=== PATIENT | male | born 1980 | race Caucasian/White ===

== ENCOUNTER → 2016-05-16 | Day surgery (SDC) | payer BC ==
[2016-05-08 14:47] VITALS: Ht 177.8 cm; Wt 81.8 kg
[~2016-05-16] VITALS: Ht 177.8 cm; Wt 81.8 kg
[~2016-05-16] MED LIST: ATROPINE SULFATE 0.1 MG/ML 5ML SYR IV PRN; DEXAMETHASONE SOD INJ 4 MG/ML VIAL IV PRN; DEXAMETHASONE SOD INJ 4 MG/ML VIAL ONE; EpHEDrine SULFATE INJ 50 MG/ML AMP IV PRN; FENTANYL CITRATE INJ 50 MCG/1 ML 2 ML VIAL IV PRN; FENTANYL CITRATE INJ 50 MCG/1 ML 2 ML VIAL ONE; KETOROLAC TROMETHAMINE 30 MG/ML VIAL IV. PRN; KETOROLAC TROMETHAMINE 30 MG/ML VIAL ONE; LABETALOL HCL IV 5 MG/ML 20ML IV PRN; LACTATED RINGER'S 1000ML 1,000 ML IV SCH; LIDOCAINE 2% 20 MG/ML 5ML SYR ONE; METOCLOPRAMIDE HCL INJ 5 MG/ML 2 ML VIAL IV PRN; MIDAZOLAM HCL 1 MG/ML 2ML VIAL ONE; MoRPHine SULFATE 10 MG/ML CARP/VIAL IV PRN; ONDANSETRON INJ 2 MG/ML 2 ML VIAL IV PRN; ONDANSETRON INJ 2 MG/ML 2 ML VIAL ONE; OXYC1TAB3 PO; PHENYLEPHRINE 100MCG/ML 5ML SYR IV PRN; PROP40TA5 PO; PROPOFOL IV EMULSION 10 MG/ML 20 ML VIAL IV ONE; TAMS0.4C38 PO
--- NOTE | 2016-05-16 06:54 | [facility] History and Physical ---
History General Date of Service: May 16, 2016. Chief Complaint: right kidney stone Primary Care Physician: Pedro Fitch D.O. Pt seen a urologist before?: Yes If yes, why?: r kidney stone History of Present Illness Today patient presents for treatment of right kidney stone. He has had others he passed on his own. He has a 7mm largest right renal stone. Imaging Imaging: [facility] Laboratory Labs were reviewed and are within normal limits unless listed below. Labs are available in the chart and at [facility] Problem List Medical Problems: (1) Right ureteral calculus Status: Acute Past History Past Medical History: migraines Past Surgical History: no surgical history Family History no pertinent family hx Social History Hx Tobacco Use In Past Year?: No (QUIT 1 YEAR AGO) Smoking Status: Former Smoker Alcohol: never Marital status: Occupation status: unemployed Allergies Coded Allergies: No Known Allergies (Unverified , 05/16/16) Medications Home Medications: Home Meds and Scripts Medications Dose Route/Sig Max Daily Dose Days Date Category Propranolol Hcl 40 Mg Tab 1 Tab PO BID 02/07/16 Reported Inpatient Medications: Current Inpatient Medications Medications (Trade) Dose Ordered Sig/Aren Route Start Time Stop Time Status Last Admin Dose Admin Lactated Ringer's (Lr 1000ml) 1,000 ml @ 15 mls/hr Q24H IV 05/16/16 06:45 05/17/16 06:44 Review of Systems Review of Systems Constitutional: No fever Gastrointestinal: + abdominal pain Cardiovascular: No chest pain Respiratory: No shortness of breath Physical Exam Physical Exam: General Appearance: WD/WN, no apparent distress, + thin Eyes: bilateral eyes normal inspection ENT: hearing grossly normal Respiratory/Chest: lungs clear, normal breath sounds, no respiratory distress, no accessory muscle use Cardiovascular: regular rate, rhythm, no JVD, no murmur Extremities: non-tender, normal inspection, no pedal edema, no calf tenderness Neurologic/Psychiatric: alert, normal mood/affect, oriented x 3 Skin: normal color, warm/dry, no rash Assessment & Plan Assessment & Plan Assessment & Plan: right kidney stones plan right shock wave lithotripsy He understands risks of bleeding failure pain kidney bruise.
--- NOTE | 2016-05-16 08:15 | [facility] Operative Report ---
Operative Report Operative Date May 16, 2016. Pre-Operative Diagnosis Right Renal Calculi Post-Operative Diagnosis same Procedure(s) Performed right shock wave lithotripsy Surgeon Dr. Martinez [employer] Mechanical Surgeon(s) None Estimated Blood Loss 0 mL Findings radio-opaque right kidney 7mm renal stone Specimens None Drains none Anesthesia LMA Complication(s) None Disposition Recovery Room / PACU Indications large right renal stone plan treatment as size makes it unlikely to pass Description of Procedure Patient was placed supine on OR table. Fluoro confirmed stone was readily visible. He had general LMA anesthesia and was placed right flank against the lithotriptor head. Time out held with team. We performed right ESWL up to 2500 shocks aimed at the right renal stone. It lightened marginally during case. We observed a 2 minute pause after the first 200 shocks and then gradually increased the power from 2 to 4. At end of case he has very mild petechia at the right flank energy treatment site. He extubated uneventfully and transferred in stable condition to recovery room. Plan: home today oral pain meds as needed. strain urine until a few fragments are recovered. rtc 1 month with [facility] clean case no antibiotic deputy controller asa 2 I attest to the content of the Intraoperative Record and any orders documented therein. Any exceptions are noted below.
--- NOTE | 2016-05-16 08:19 | Discharge Instructions ---
Discharge Instructions Date of Service May 16, 2016. Admission Reason for Admission: Right Kidney Stone Discharge Discharge Diagnosis / Problem: right kidney stones Discharge Goals Goal(s): Decrease discomfort, Improve disease control Activity Recommendations Activity Limitations: resume your previous activity Lifting Limitations: none Exercise/Sports Limitations: gradually increase as tolerated May Resume Sexual Activity: when tolerated Shower/Bathe: no limitations Driving or Machine Use: resume 1 day after discharge . Instructions / Follow-Up Instructions / Follow-Up expect blood in urine for days to weeks expect moderate pain right flank for several days go to ER for uncontrolled pain, continuous vomiting, or fever over 100F Use tylenol or ibuprofen every 6 hours for mild pain use oxycodone every 6 hours for moderate pain Discharge Diet Recommended Diet: Regular Diet Fluid Restriction: None Procedures Procedures Performed: Right Extracorporeal Shock Wave Lithotripsy Pending Studies Studies pending at discharge: no Medical Emergencies . Who to Call and When: Medical Emergencies: If at any time you feel your situation is an emergency, please call 911 immediately. . Non-Emergent Contact Non-Emergency issues call your: Urologist ([phone]) Call Non-Emergent contact if: temperature is above 100.5, your pain is not controlled . . "Provider Documentation" section prepared by Asha Martinez. VTE Core Measure Inpt VTE Proph given/why not?: SCD's
[2016-05-16 08:44] VITALS: TEMP 36.1
[2016-05-16 09:20] VITALS: BP 112/76; PULSE 62; O2SAT 100
--- NOTE | 2016-05-16 09:42 | Anesthesia Progress Nt - [facility] ---
Anesthesia Post Op Note Date & Time May 16, 2016 at 09:18 Vital Signs Pain Intensity: 0 Vital Signs Past 12 Hours Date Time Temp Pulse Resp B/P Pulse Ox O2 Delivery O2 Flow Rate FiO2 05/16/16 08:44 36.1 60 18 118/80 100 Room Air 05/16/16 08:31 112/79 05/16/16 08:30 36.4 62 12 112/79 98 Room Air 05/16/16 08:28 60 13 05/16/16 08:28 60 13 98 05/16/16 08:26 115/80 05/16/16 08:23 64 15 05/16/16 08:23 60 15 100 05/16/16 08:21 107/73 05/16/16 08:18 59 11 05/16/16 08:18 58 11 99 05/16/16 08:16 118/80 05/16/16 08:13 54 12 99 05/16/16 08:13 57 12 05/16/16 08:11 117/78 05/16/16 08:08 36.4 78 12 115/81 99 Room Air 05/16/16 08:08 75 05/16/16 08:08 75 115/81 99 05/16/16 06:40 36.5 70 16 117/76 97 Room Air Notes Mental Status: alert / awake / arousable, participated in evaluation Pt Amnestic to Procedure: Yes Nausea / Vomiting: adequately controlled Pain: adequately controlled Airway Patency, RR, SpO2: stable & adequate BP & HR: stable & adequate Hydration State: stable & adequate Anesthetic Complications: no major complications apparent
== END | disposition home or self-care (01) ==
LOC: X.SURG 06:20
PROVIDERS: ATTEND Urology
DX: N20.0 Calculus of kidney (principal); N20.1 Calculus of ureter; G43.909 Migraine, unspecified, not intractable, without status migrainosus

== ENCOUNTER 2017-09-30 17:48 | Inpatient (IN) | payer BC ==
[~2017-09-30] VITALS: Ht 177.8 cm; Wt 84.5 kg
[~2017-09-30 17:48] MED LIST changes: -ATROPINE SULFATE 0.1 MG/ML 5ML SYR IV PRN; -DEXAMETHASONE SOD INJ 4 MG/ML VIAL IV PRN; -DEXAMETHASONE SOD INJ 4 MG/ML VIAL ONE; -EpHEDrine SULFATE INJ 50 MG/ML AMP IV PRN; -FENTANYL CITRATE INJ 50 MCG/1 ML 2 ML VIAL IV PRN; -FENTANYL CITRATE INJ 50 MCG/1 ML 2 ML VIAL ONE; -KETOROLAC TROMETHAMINE 30 MG/ML VIAL IV. PRN; -KETOROLAC TROMETHAMINE 30 MG/ML VIAL ONE; -LABETALOL HCL IV 5 MG/ML 20ML IV PRN; -LACTATED RINGER'S 1000ML 1,000 ML IV SCH; -LIDOCAINE 2% 20 MG/ML 5ML SYR ONE; -METOCLOPRAMIDE HCL INJ 5 MG/ML 2 ML VIAL IV PRN; -MIDAZOLAM HCL 1 MG/ML 2ML VIAL ONE; -MoRPHine SULFATE 10 MG/ML CARP/VIAL IV PRN; -ONDANSETRON INJ 2 MG/ML 2 ML VIAL IV PRN; -ONDANSETRON INJ 2 MG/ML 2 ML VIAL ONE; -OXYC1TAB3 PO; -PHENYLEPHRINE 100MCG/ML 5ML SYR IV PRN; -PROPOFOL IV EMULSION 10 MG/ML 20 ML VIAL IV ONE; -TAMS0.4C38 PO
[2017-09-30] MEDS ORDERED: SODIUM CHLORIDE 0.9% 1000ML 500 ML IV ONE ×2 (18:04)
[2017-09-30] MEDS ORDERED: ACETAMINOPHEN 500 MG TAB PO STA (18:04)
[2017-09-30] MEDS ORDERED: OPTIRAY 320 IV PRN (18:15)
[2017-09-30] MEDS ORDERED: ELET40TA9 PO (18:20)
[2017-09-30] MEDS ORDERED: ACET-1256 PO (18:22)
--- NOTE | 2017-09-30 18:26 | EMERGENCY ROOM VISIT NOTE ---
History Report prepared by Laurel: Vonnie Marsh Under the Supervision of: Dr. Luis F Terry M.D. First contact with patient: 18:00 Chief Complaint: ILLNESS Stated Complaint: COLD, SORE THROAT, SHAKING History of Present Illness The patient is a 37 year old male who presents to the Emergency Room with complaints of a constant sore throat beginning yesterday. He notes the pain is worst on the R side of his throat, and is accompanied by shaking and some mild ear pain. The patient denies a runny nose, cough, difficulty breathing, nausea, vomiting, or bowel movement or urinary symptoms. He reports he has been taking Tylenol for his symptoms, and last had it 6 hours ago. The patient notes he is having some difficulty swallowing. Decreased PO intake. No trauma. No thyroid history. Source of History: patient Onset: yesterday Position: throat Quality: other (sore throat) Timing: constant Associated Symptoms: No cough, No nausea, No urinary symptoms Note: Associated symptoms: mild ear pain, difficulty swallowing. Denies: runny nose, difficulty breathing, bowel movement symptoms. Review of Systems See HPI for pertinent positives and negatives. A total of ten systems were reviewed and were otherwise negative. Past Medical & Surgical Medical Problems: (1) Migraine Unspecified W/O Intract Mgrn W/O Status Migrainosus (2) Renal colic on right side (3) Sepsis Family History Diabetes mellitus FH: cancer FH: heart disease Hypertension Kidney disease Social History Smoking Status: Never Smoker Alcohol Use: none Marital Status: Housing Status: lives with family Occupation Status: unemployed Current/Historical Medications Scheduled PRN Acetaminophen (Tylenol), 500 MG PO UD PRN for Pain or Fever Eletriptan Hydrobromide (Eletriptan Hydrobromide), 40 MG PO UD PRN for Migraine Allergies Coded Allergies: No Known Allergies (Unverified , 05/16/16) Physical Exam Vital Signs Date Time Temp Pulse Resp B/P (MAP) Pulse Ox O2 Delivery O2 Flow Rate FiO2 09/30/17 21:36 37.7 101 18 141/79 96 Room Air 09/30/17 20:24 115 20 121/74 96 Room Air 09/30/17 20:24 39.0 09/30/17 19:27 39.7 09/30/17 19:13 132 26 117/77 96 Room Air 09/30/17 18:58 136 24 96 Room Air 09/30/17 18:24 Room Air 09/30/17 17:55 39.4 154 20 138/79 96 Room Air Physical Exam GENERAL: Awake, alert, well-appearing, appears moderately uncomfortable HENT: Normocephalic, atraumatic. R tonsillar swelling and exudate. EYES: Normal conjunctiva. Sclera non-icteric. NECK: Supple with slight right tenderness at angle of right jaw. No nuchal rigidity. RESPIRATORY: Clear to auscultation. No wheezes. Normal respiratory effort. CARDIAC: Tachycardic rate. Normal rhythm. Extremities warm and well perfused. GI: Soft, non-distended. No tenderness to palpation. No rebound or guarding. No masses. RECTAL: Deferred. MUSCULOSKELETAL: Atraumatic. Chest examination reveals no tenderness. There is no CVA tenderness to palpation. LOWER EXTREMITIES: Calves are equal size bilaterally and non-tender. No edema NEURO: Normal sensorium. No sensory or motor deficits noted. No facial droop. SKIN: Warm and dry. No rash or jaundice noted. Medical Decision & Procedures ER Provider Diagnostic Interpretation: Radiology results as stated below per my review and radiologist interpretation: CT SOFT TISSUE NECK WITH CT DOSE: 432.67 mGy.cm CLINICAL HISTORY: Sore throat and fever. Possible right-sided peritonsillar abscess. TECHNIQUE: Helical images were acquired during intravenous administration of 115 cc of Optiray 320. A dose lowering technique was utilized adhering to the principles of ALARA. COMPARISON STUDY: None. FINDINGS: The visualized portions of the lung apices are unremarkable. No thyroid masses are visualized. No salivary gland masses are visualized. There are enlarged right-sided level 2 lymph nodes, likely reactive. There is a subtle 11 mm right tonsillar hypodensity, consistent with a developing phlegmon/abscess. There is no evidence of airway compromise. The epiglottis appears normal. IMPRESSION: 1. Subtle 11 mm right tonsillar hypodensity consistent with a developing phlegmon/abscess 2. No evidence of significant airway compromise 3. Mildly enlarged right cervical lymph nodes, likely reactive. 4. Normal epiglottis Electronically signed by: José Miguel Gonzalez M.D. 09/30/2017 8:47 PM Dictated Date/Time: 09/30/2017 8:43 PM CHEST ONE VIEW PORTABLE CLINICAL HISTORY: Fever, sepsis COMPARISON STUDY: No previous studies for comparison. FINDINGS: The cardiac and mediastinal contours are normal. There is no evidence of focal pulmonary consolidation. There is no evidence of failure. No pleural effusions are visualized. IMPRESSION: No active disease in the chest. Electronically signed by: José Miguel Gonzalez M.D. 09/30/2017 6:47 PM Dictated Date/Time: 09/30/2017 6:46 PM Laboratory Results 09/30/17 18:10 Red Blood Count 5.68, Mean Corpuscular Volume 80.6, Mean Corpuscular Hemoglobin 27.6, Mean Corpuscular Hemoglobin Concent 34.3, Mean Platelet Volume 10.1, Neutrophils (%) (Auto) 84.3, Lymphocytes (%) (Auto) 8.6, Monocytes (%) (Auto) 6.5, Eosinophils (%) (Auto) 0.1, Basophils (%) (Auto) 0.1, Neutrophils # (Auto) 14.59, Lymphocytes # (Auto) 1.48, Monocytes # (Auto) 1.13, Eosinophils # (Auto) 0.01, Basophils # (Auto) 0.02 09/30/17 18:10 Test 09/30/17 18:10 09/30/17 21:45 White Blood Count 17.30 K/uL (4.8-10.8) Red Blood Count 5.68 M/uL (4.7-6.1) Hemoglobin 15.7 g/dL (14.0-18.0) Hematocrit 45.8 % (42-52) Mean Corpuscular Volume 80.6 fL (80-100) Mean Corpuscular Hemoglobin 27.6 pg (25-34) Mean Corpuscular Hemoglobin Concent 34.3 g/dl (32-36) Platelet Count 97 K/uL (130-400) Mean Platelet Volume 10.1 fL (7.4-10.4) Neutrophils (%) (Auto) 84.3 % Lymphocytes (%) (Auto) 8.6 % Monocytes (%) (Auto) 6.5 % Eosinophils (%) (Auto) 0.1 % Basophils (%) (Auto) 0.1 % Neutrophils # (Auto) 14.59 K/uL (1.4-6.5) Lymphocytes # (Auto) 1.48 K/uL (1.2-3.4) Monocytes # (Auto) 1.13 K/uL (0.11-0.59) Eosinophils # (Auto) 0.01 K/uL (0-0.5) Basophils # (Auto) 0.02 K/uL (0-0.2) RDW Standard Deviation 39.7 fL (36.4-46.3) RDW Coefficient of Variation 13.5 % (11.5-14.5) Immature Granulocyte % (Auto) 0.4 % Immature Granulocyte # (Auto) 0.07 K/uL (0.00-0.02) Platelet Estimate DECREASED Red Blood Cell Morphology Unremarkable Anion Gap 7.0 mmol/L (3-11) Est Creatinine Clear Calc Drug Dose 81.1 ml/min Estimated GFR () 81.4 Estimated GFR (Non- 70.2 BUN/Creatinine Ratio 11.9 (10-20) Calcium Level 8.8 mg/dl (8.5-10.1) Magnesium Level 2.1 mg/dl (1.8-2.4) Total Bilirubin 0.7 mg/dl (0.2-1) Direct Bilirubin 0.2 mg/dl (0-0.2) Aspartate Amino Transf (AST/SGOT) 17 U/L (15-37) Alanine Aminotransferase (ALT/SGPT) 27 U/L (12-78) Alkaline Phosphatase 88 U/L (45-117) C-Reactive Protein 16.80 mg/dl (0-0.29) Total Protein 8.0 gm/dl (6.4-8.2) Albumin 4.2 gm/dl (3.4-5.0) Thyroid Stimulating Hormone (TSH) 0.340 uIu/ml (0.300-4.500) Monoscreen NEG (NEG) Lactic Acid Level 0.7 mmol/L (0.4-2.0) Laboratory results reviewed by me Medications Administered Medications (Trade) Dose Ordered Sig/Aren Route Start Time Stop Time Status Last Admin Dose Admin Acetaminophen (Tylenol Tab) 1,000 mg NOW STAT PO 09/30/17 18:04 09/30/17 18:08 DC 09/30/17 18:23 1,000 MG Sodium Chloride 500 ml @ 999 mls/hr Q31M ONCE IV 09/30/17 18:04 09/30/17 18:34 DC 09/30/17 18:04 999 MLS/HR Sodium Chloride 500 ml @ 999 mls/hr Q31M ONCE IV 09/30/17 18:04 09/30/17 18:34 DC 09/30/17 18:04 999 MLS/HR Ampicillin Sodium/ Sulbactam Sodium 3000 mg/Sodium Chloride 108 ml @ 200 mls/hr NOW STAT IV 09/30/17 18:45 09/30/17 19:17 DC 09/30/17 19:14 200 MLS/HR Ketorolac Tromethamine (Toradol Inj) 15 mg NOW STAT IV 09/30/17 19:33 09/30/17 19:34 DC 09/30/17 19:40 15 MG Dexamethasone Sodium Phosphate (Dexamethasone Inj Pf) 10 mg NOW ONCE PO 09/30/17 21:30 09/30/17 21:32 DC 09/30/17 21:36 10 MG Sodium Chloride 1,000 ml @ 999 mls/hr Q1H1M ONCE IV 09/30/17 21:32 09/30/17 22:32 DC 09/30/17 21:36 999 MLS/HR ECG Per My Interpretation Indication: tachycardia Rate (beats per minute): 144 Findings: other (normal axis. normal intercals. no ST el) ED Course 1800: The patient was evaluated in room C1B. A complete history and physical exam was performed. 1804: Ordered Sodium Chloride 500 ml @ 999 mls/hr IV, Sodium Chloride 500 ml @ 999 mls/hr IV, Tylenol Tab 1000 mg PO 1815: Ordered Ioversol 100 ml IV 1827: Throat swabs obtained. 5: Ordered Ampicillin Sodium/Sulbactam Sodium 3000 mg/Sodium Chloride 108 ml @ 200 mls/hr IV 1927: I reevaluated and updated the patient. 1932: Ordered Toradol Inj 15 mg IV. 2115: I reevaluated and updated the patient. 2129: Ordered Dexamethasone Sodium Phosphate 10 mg PO. 2131: Ordered Sodium Chloride 1000 ml @ 999 mls/hr IV. 2135: I discussed the case with Dr. Callaway, [facility] hospitalist. The patient will be evaluated for further treatment and disposition. Medical Decision Etiologies such as viral syndrome, tonsillitis, streptococcal pharyngitis, mononucleosis, peritonsillar abscess, retropharyngeal abscess, otitis, pneumonia , influenza, as well as others were entertained. Patient presents with neck pain and fever starting yesterday. Evidence of right tonsillar swelling. No nausea vomiting or shortness of breath. Does not appear grossly meningitic. Tachycardic. Lactate borderline elevation. Believe he likely has pharyngitis versus neck infection versus BILLET CUTTER. Doubt meningitis. Chest x-ray clear. Benign abdomen. Fluid rehydrated. Culture sent. Rapid strep and mono sent. [place] negative. Leukocytosis is present. Given Tylenol and Toradol for fever. Patient's fever improved slightly and tachycardia improved slightly and he is more comfortable but still febrile and tachycardic with leukocytosis. Has signs of sepsis but not organ dysfunction. Second lactate improved. Not in septic shock. Given steroids and again received Unasyn. Will monitor overnight as he developing right peritonsillar phlegmon/early abscess. This is not amenable to draining at this time. No signs of airway compromise. Will admit overnight and the hospitalist was contacted. Medication Reconcilliation Current Medication List: was personally reviewed by me Blood Pressure Screening Patient's blood pressure: Normal blood pressure Blood pressure disposition: Did not require urgent referral Consults Time Called: 2130 Consulting Physician: Saul Wade hospitalist Returned Call: 2135 [facility] The patient will be evaluated for further treatment and disposition. Impression Primary Impression: Peritonsillar abscess Additional Impression: Sepsis Critical Care I have personally spent greater than 31 minutes of critical care time in the direct management of this patient. This includes bedside care, interpretation of diagnostic studies, and testing, discussion with consultants, patient, and family members, and other required patient management activities. This 31 minutes is in excess of all separately billable procedures. Scribe Attestation The scribe's documentation has been prepared under my direction and personally reviewed by me in its entirety. I confirm that the note above accurately reflects all work, treatment, procedures, and medical decision making performed by me. Departure Information Dispostion Being Evaluated By Hospitalist Referrals Pedro Fitch D.OMoises (PCP) Patient Instructions My [facility] Sepsis Post Crystalloid Evaluation Date: Sep 30, 2017 Time: 21:16 Capillary Refill Exam Normal (less than 2 seconds) Cardiopulmonary Evaluation Lung Exam: chest non-tender, lungs clear, normal breath sounds, no respiratory distress, no accessory muscle use Heart Exam: no edema, no gallop, no JVD, no murmur, normal peripheral pulses, + tachycardia Central Venous Evaluation Pulse Ox %: 96 Peripheral Pulse Evaluation Bounding Skin Exam [place] Vitals Last Vital Signs Documentation Date Time Temp Pulse Resp B/P (MAP) Pulse Ox O2 Delivery O2 Flow Rate FiO2 09/30/17 21:36 37.7 101 18 141/79 96 Room Air Problem Qualifiers Additional Impression: Sepsis Sepsis type: sepsis due to unspecified organism Qualified Codes: A41.9 - Sepsis, unspecified organism
[2017-09-30] MEDS ORDERED: AMPICILLIN/SULBACTAM SOD INJ 3,000 MG in SODIUM CHLORIDE 0.9% 100ML 100 ML IV STA (18:45)
--- NOTE | 2017-09-30 18:48 | DIAGNOSTIC IMAGING REPORT ---
CHEST ONE VIEW PORTABLE CLINICAL HISTORY: Fever, sepsis COMPARISON STUDY: No previous studies for comparison. FINDINGS: The cardiac and mediastinal contours are normal. There is no evidence of focal pulmonary consolidation. There is no evidence of failure. No pleural effusions are visualized.[ IMPRESSION: No active disease in the chest. Electronically signed by: José Miguel Gonzalez M.D. 09/30/2017 6:47 PM Dictated Date/Time: 09/30/2017 6:46 PM
[2017-09-30 18:49] LABS: ALBUMIN 4.2 gm/dl (3.4-5.0); CALCIUM 8.8 mg/dl (8.5-10.1); CREATININE 1.3 mg/dl (0.60-1.40); POTASSIUM 3.9 mmol/L (3.5-5.1)
[2017-09-30] MEDS ORDERED: KETOROLAC TROMETHAMINE 30 MG/ML VIAL IV STA (19:33)
[2017-09-30 19:59] LABS: HEMATOCRIT 45.8 % (42-52); HEMOGLOBIN 15.7 g/dL (14.0-18.0); MEAN CELL VOLUME 80.6 fL (80-100); MEAN CORPUSCULAR HEMOGLOBIN 27.6 pg (25-34); MEAN CORPUSCULAR HGB CONC 34.3 g/dl (32-36); MEAN PLATELET VOLUME 10.1 fL (7.4-10.4); PLATELET COUNT 97 K/uL (130-400); RED CELL DISTRIBUTION WIDTH CV 13.5 % (11.5-14.5); RED CELL DISTRIBUTION WIDTH SD 39.7 fL (36.4-46.3)
[2017-09-30 20:00] LABS: BASO % 0.1 %; BASO ABS # 0.02 K/uL (0-0.2); EOS % 0.1 %; EOS ABS # 0.01 K/uL (0-0.5); IG# 0.07 K/uL (0.00-0.02); LYMPH % 8.6 %; LYMPH ABS # 1.48 K/uL (1.2-3.4); MONO % 6.5 %; MONO ABS # 1.13 K/uL (0.11-0.59); NEUT % 84.3 %; NEUT ABS # 14.59 K/uL (1.4-6.5)
--- NOTE | 2017-09-30 20:49 | DIAGNOSTIC IMAGING REPORT ---
CT SOFT TISSUE NECK WITH CT DOSE: 432.67 mGy.cm CLINICAL HISTORY: Sore throat and fever. Possible right-sided peritonsillar abscess. TECHNIQUE: Helical images were acquired during intravenous administration of 115 cc of Optiray 320. A dose lowering technique was utilized adhering to the principles of ALARA. COMPARISON STUDY: None. FINDINGS: The visualized portions of the lung apices are unremarkable. No thyroid masses are visualized. No salivary gland masses are visualized. There are enlarged right-sided level 2 lymph nodes, likely reactive. There is a subtle 11 mm right tonsillar hypodensity, consistent with a developing phlegmon/abscess. There is no evidence of airway compromise. The epiglottis appears normal. IMPRESSION: 1. Subtle 11 mm right tonsillar hypodensity consistent with a developing phlegmon/abscess 2. No evidence of significant airway compromise 3. Mildly enlarged right cervical lymph nodes, likely reactive. 4. Normal epiglottis Electronically signed by: José Miguel Gonzalez M.D. 09/30/2017 8:47 PM Dictated Date/Time: 09/30/2017 8:43 PM
[2017-09-30] MEDS ORDERED: DEXAMETHASONE **PF** INJ 10 MG/ML VIAL PO ONE (21:30)
[2017-09-30] MEDS ORDERED: SODIUM CHLORIDE 0.9% 1000ML 1,000 ML IV ONE (21:32)
--- NOTE | 2017-09-30 21:50 | Progress Note ---
Progress Note Post Crystalloid Evaluation Date: Sep 30, 2017 Time: 22:00 Subjective Sore throat, odynophagia symptoms of 1 day duration Physical Exam Vital Signs: Vital Signs Date Time Temp Pulse Resp B/P (MAP) Pulse Ox O2 Delivery O2 Flow Rate FiO2 09/30/17 21:36 37.7 101 18 141/79 96 Room Air Heart: + tachycardia Peripheral Pulse: Normal Capillary Refill: Normal (less than 2 seconds) Skin: [place] Assessment & Plan Presence of: Severe Sepsis Severe sepsis SIRS plus lactic acid elevation secondary to peritonsillar abscess. CS, IV Unasyn. IVF, follow lactic acid
[2017-09-30] MEDS ORDERED: ACETAMINOPHEN 325 MG TAB PO PRN (22:30)
[2017-09-30] MEDS ORDERED: IBUPROFEN 200 MG TAB PO PRN (22:30)
[2017-09-30] MEDS ORDERED: TRAMADOL HCL 50 MG TAB PO PRN (22:30)
[2017-09-30] MEDS ORDERED: PROCHLORPERAZINE INJ 5 MG in SYRINGE 4 ML IV PRN (22:30)
[2017-09-30 22:36] VITALS: BP 131/87; PULSE 101; TEMP 36.9; O2SAT 97; Ht 177.8 cm; Wt 84.5 kg
[2017-09-30] MEDS ORDERED: AMPICILLIN/SULBACTAM CONSULT ACTIVE PRN (23:00)
[2017-09-30] MEDS ORDERED: NSS + 20MEQ KCL 1000ML 1,000 ML IV ONE (23:15)
--- NOTE | 2017-10-01 00:04 | HISTORY & PHYSICAL EXAMINATION ---
DATE OF ADMISSION: 09/30/2017 PRIMARY CARE PHYSICIAN: Dr. Fitch. CHIEF COMPLAINT: Sore throat. HISTORY OF PRESENT ILLNESS: Medical history is significant for chronic migraine, urolithiasis, chronic thrombocytopenia. Since childhood, the patient has had recurrent sore throats (about three episodes a year) - most episodes resolving without antibiotic prescription. Last episode was last month. Yesterday sore throat noted more on on the right side with R otalgia, odynophagia, fever, chills. No chest pain, no shortness of breath. At the Emergency Room, patient received Unasyn for sepsis. MEDICAL HISTORY: As above. SURGERIES: Urologic procedures. HOME MEDICATIONS: Include Nortriptyline, Omeprazole, Relpax p.r.n. ALLERGIES: DUST MITE. FAMILY HISTORY: There is a family history of recurrent sore throat. PERSONAL AND SOCIAL HISTORY: Nonsmoker, no chronic intake of alcoholic beverages. [employer] school employee. Originally from [place]. REVIEW OF SYSTEMS: As per HPI, all 10 systems reviewed, all other ROS negative. PHYSICAL EXAMINATION: VITAL SIGNS: Blood pressure was noted to be 113/79, pulse rate 154, later 101, RR 18, temperature 39.7, sats 96 on room air. GENERAL: Noted to be pleasant and comfortable, no respiratory distress. No stridor. SKIN: Normal color, warm. HEENT: Shorter palpebral conjunctivae. No ptosis, dry mucosa. Enlarged tonsil on the right with right peritonsillar swelling, R tonsillar exudate noted. No trismus. NECK: Supple, some submandibular adenopathy noted. CHEST: Clear to auscultation, no tenderness. HEART: Tachycardic. No murmur. ABDOMEN: Soft, nontender. EXTREMITIES: No edema. No gross deformities, no tenderness. NEUROLOGIC: Coherent, no gross focality. LABORATORY DATA: Hemoglobin 15.7, hematocrit 45.8, white cell count 17.3, platelets 97 (immature granulocytes 0.07, monocytes 1.13, decreased platelet estimate). Sodium 136, potassium 3.9, chloride 103, BUN 60, creatine 1.2, glucose 114. Lactic acid was noted to be 2.1. CT neck shows subtle 11-mm right tonsillar hypodensity consistent with developing phlegmon/abscess. Chest x-ray, no active disease. EKG as per my interpretation, rate 145, sinus tachycardia, no ischemia. ASSESSMENT: 1. Severe sepsis SIRS plus lactic acid elevation secondary to peritonsillar abscess. 2. Chronic migraine, stable 3. Hyperglycemia, rule out DM. 4. Chronic thrombocytopenia with abnormal WBC differential count rule out blood dyscrasia. PLAN: GMF CS, IV Unasyn. IVF, follow lactic acid ENT consult, peritonsillar abscess, recurrent tonsillitis. Peripheral blood smear. Check hemoglobin A1c. DVT prophylaxis, SCDs RE thrombocytopenia. Full code. MTDD
[2017-10-01] MEDS: AMPICILLIN/SULBACTAM SOD INJ 3,000 MG in SODIUM CHLORIDE 0.9% 100ML 100 ML IV SCH ×4 (01:41→20:10)
[2017-10-01] MEDS: KETOROLAC TROMETHAMINE 15 MG/ML VIAL IV. PRN (05:46)
[2017-10-01 05:55] LABS: HEMATOCRIT 40.8 % (42-52); HEMOGLOBIN 13.9 g/dL (14.0-18.0); MEAN CORPUSCULAR HEMOGLOBIN 27.6 pg (25-34); MEAN CORPUSCULAR HGB CONC 34.1 g/dl (32-36); RED CELL DISTRIBUTION WIDTH CV 13.8 % (11.5-14.5); RED CELL DISTRIBUTION WIDTH SD 40.6 fL (36.4-46.3); WHITE BLOOD COUNT 17.05 K/uL (4.8-10.8)
[2017-10-01 05:58] LABS: MEAN PLATELET VOLUME 9.6 fL (7.4-10.4); PLATELET COUNT 78 K/uL (130-400)
[2017-10-01 06:15] LABS: CREATININE 0.89 mg/dl (0.60-1.40)
[2017-10-01 06:17] LABS: BASO % 0.1 %; BASO ABS # 0.01 K/uL (0-0.2); IG# 0.07 K/uL (0.00-0.02); LYMPH % 4.6 %; LYMPH ABS # 0.78 K/uL (1.2-3.4); MONO % 3.5 %; NEUT % 91.4 %; NEUT ABS # 15.59 K/uL (1.4-6.5)
[2017-10-01 07:16] VITALS: BP 120/74; PULSE 91; TEMP 36.6; O2SAT 97
--- NOTE | 2017-10-01 14:58 | Progress Note ---
Subjective Date of Service: Oct 01, 2017. Subjective Pt evaluation today including: conversation w/ patient, physical exam, lab review, review of studies, conversation w/ service loss control consultant, review of inpatient medication list Saw/examined the patient in room 454 He's doing well, no problems/issues at this time throat pain improving; states he's had throat pain once or twice every year and is wondering about getting his tonsils removed fevers improved, tolerated clears Problem List Medical Problems: (1) Peritonsillar abscess Status: Acute (2) Right ureteral calculus Status: Acute Review of Systems Constitutional: No fever (resolved), No chills ENT: + sore throat (improving), + trouble swallowing Respiratory: No cough, No sputum, No wheezing, No shortness of breath, No dyspnea on exertion, No dyspnea at rest, No hemoptysis Cardiac: No chest pain, No edema, No palpitations Abdomen: No pain, No nausea, No vomiting, No diarrhea, No constipation, No GI bleeding Medications Current Inpatient Medications Medications (Trade) Dose Ordered Sig/Aren Route Start Time Stop Time Status Last Admin Dose Admin Ioversol (Optiray 320) 100 ml UD PRN IV 09/30/17 18:15 10/04/17 18:14 Acetaminophen (Tylenol Tab) 650 mg Q4H PRN PO 09/30/17 22:30 10/30/17 22:29 Ampicillin Sodium/ Sulbactam Sodium (Consult) 1 ea UD PRN N/A 09/30/17 23:00 10/30/17 22:59 Ketorolac Tromethamine (Toradol Inj) 15 mg Q6H PRN IV. 09/30/17 22:30 10/05/17 22:29 10/01/17 05:46 15 MG Ibuprofen (Advil Tab) 400 mg Q6H PRN PO 09/30/17 22:30 10/30/17 22:29 Prochlorperazine Edisylate 5 mg/ Syringe 5 ml @ 5 mls/min Q6H PRN IV 09/30/17 22:30 10/30/17 22:29 Tramadol HCl (Ultram Tab) not relieved by tylenol @ Q6H PRN PO 09/30/17 22:30 10/30/17 22:29 Miscellaneous Information (Order Awaiting Action) 1 ea QS N/A 10/01/17 00:00 10/31/17 00:00 Nortriptyline HCl (Pamelor Cap) 50 mg HS PO 10/01/17 21:00 10/31/17 20:59 Ampicillin Sodium/ Sulbactam Sodium 3000 mg/Sodium Chloride 108 ml @ 216 mls/hr Q6H IV 10/01/17 02:00 10/11/17 01:59 10/01/17 13:38 216 MLS/HR Objective Vital Signs Date Time Temp Pulse Resp B/P (MAP) Pulse Ox O2 Delivery O2 Flow Rate FiO2 10/01/17 08:00 Room Air 10/01/17 07:16 36.6 91 16 120/74 (89) 97 Room Air 10/01/17 00:00 Room Air 09/30/17 22:36 36.9 101 16 131/87 97 Room Air 09/30/17 22:25 101 18 135/89 97 09/30/17 21:36 37.7 101 18 141/79 96 Room Air 09/30/17 20:24 115 20 121/74 96 Room Air 09/30/17 20:24 39.0 09/30/17 19:27 39.7 09/30/17 19:13 132 26 117/77 96 Room Air 09/30/17 18:58 136 24 96 Room Air 09/30/17 18:24 Room Air 09/30/17 17:55 39.4 154 20 138/79 96 Room Air Physical Exam General Appearance: no apparent distress ENT: + pharyngeal erythema, + tonsillar exudate Respiratory/Chest: chest non-tender, lungs clear, normal breath sounds, no respiratory distress, no accessory muscle use Cardiovascular: regular rate, rhythm, no edema, no murmur Abdomen: normal bowel sounds, non tender, soft Extremities: normal inspection, no pedal edema Laboratory Results Last 24 Hours Test 09/30/17 18:10 09/30/17 18:20 09/30/17 21:45 09/30/17 23:35 White Blood Count 17.30 K/uL Red Blood Count 5.68 M/uL Hemoglobin 15.7 g/dL Hematocrit 45.8 % Mean Corpuscular Volume 80.6 fL Mean Corpuscular Hemoglobin 27.6 pg Mean Corpuscular Hemoglobin Concent 34.3 g/dl Platelet Count 97 K/uL Mean Platelet Volume 10.1 fL Neutrophils (%) (Auto) 84.3 % Lymphocytes (%) (Auto) 8.6 % Monocytes (%) (Auto) 6.5 % Eosinophils (%) (Auto) 0.1 % Basophils (%) (Auto) 0.1 % Neutrophils # (Auto) 14.59 K/uL Lymphocytes # (Auto) 1.48 K/uL Monocytes # (Auto) 1.13 K/uL Eosinophils # (Auto) 0.01 K/uL Basophils # (Auto) 0.02 K/uL RDW Standard Deviation 39.7 fL RDW Coefficient of Variation 13.5 % Immature Granulocyte % (Auto) 0.4 % Immature Granulocyte # (Auto) 0.07 K/uL Platelet Estimate DECREASED Red Blood Cell Morphology Unremarkable Sodium Level 136 mmol/L Potassium Level 3.9 mmol/L Chloride Level 103 mmol/L Carbon Dioxide Level 26 mmol/L Anion Gap 7.0 mmol/L Blood Urea Nitrogen 16 mg/dl Creatinine 1.30 mg/dl Est Creatinine Clear Calc Drug Dose 81.1 ml/min Estimated GFR () 81.4 Estimated GFR (Non- 70.2 BUN/Creatinine Ratio 11.9 Random Glucose 114 mg/dl Estimated Average Glucose 97 mg/dl Hemoglobin A1c 5.0 % Calcium Level 8.8 mg/dl Magnesium Level 2.1 mg/dl Total Bilirubin 0.7 mg/dl Direct Bilirubin 0.2 mg/dl Aspartate Amino Transf (AST/SGOT) 17 U/L Alanine Aminotransferase (ALT/SGPT) 27 U/L Alkaline Phosphatase 88 U/L C-Reactive Protein 16.80 mg/dl Total Protein 8.0 gm/dl Albumin 4.2 gm/dl Thyroid Stimulating Hormone (TSH) 0.340 uIu/ml Monoscreen NEG Lactic Acid Level 2.1 mmol/L 0.7 mmol/L Urine Color DK YELLOW Urine Appearance CLEAR Urine pH 5.5 Urine Specific [place] > 1.045 Urine Protein TRACE Urine Glucose (UA) NEG Urine Ketones 2+ Urine Occult Blood 1+ Urine Nitrite NEG Urine Bilirubin NEG Urine Urobilinogen NEG Urine Leukocyte Esterase NEG Urine WBC (Auto) 1-5 /hpf Urine RBC (Auto) 10-30 /hpf Urine Hyaline Casts (Auto) 0 /lpf Urine Epithelial Cells (Auto) 5-10 /lpf Urine Bacteria (Auto) NEG Test 10/01/17 05:30 White Blood Count 17.05 K/uL Red Blood Count 5.04 M/uL Hemoglobin 13.9 g/dL Hematocrit 40.8 % Mean Corpuscular Volume 81.0 fL Mean Corpuscular Hemoglobin 27.6 pg Mean Corpuscular Hemoglobin Concent 34.1 g/dl Platelet Count 78 K/uL Mean Platelet Volume 9.6 fL Neutrophils (%) (Auto) 91.4 % Lymphocytes (%) (Auto) 4.6 % Monocytes (%) (Auto) 3.5 % Eosinophils (%) (Auto) 0.0 % Basophils (%) (Auto) 0.1 % Neutrophils # (Auto) 15.59 K/uL Lymphocytes # (Auto) 0.78 K/uL Monocytes # (Auto) 0.60 K/uL Eosinophils # (Auto) 0.00 K/uL Basophils # (Auto) 0.01 K/uL RDW Standard Deviation 40.6 fL RDW Coefficient of Variation 13.8 % Immature Granulocyte % (Auto) 0.4 % Immature Granulocyte # (Auto) 0.07 K/uL Red Blood Cell Morphology Unremarkable Peripheral Blood Smear Path Consult Creatinine 0.89 mg/dl Est Creatinine Clear Calc Drug Dose 118.5 ml/min Estimated GFR () 127.5 Estimated GFR (Non- 110.0 Assessment and Plan This is a 37 year old male with a past medical history of chronic migraines and chronic thrombocytopenia - presents with peritonsillar abscess Peritonsillar Abscess - CT of the soft tissue neck shows an 11mm peritonsillar abscess - spoke with ENT over the phone, this is unlikely to be drained - to see ENT as an outpatient in one week - in the meantime, will treat with antibiotics - Unasyn while inpatient and Augmentin on discharge - currently on clears and advance as tolerated Chronic Thrombocytopenia - platelets stable Chronic Migraines - continue home medications DVT ppx - ambulation FULL CODE
[2017-10-01 15:50] VITALS: BP 109/78; PULSE 94; TEMP 36.7; O2SAT 97
[2017-10-01 20:00] VITALS: O2SAT 97
[2017-10-01] MEDS ORDERED: NORTRIPTYLINE HCL 25 MG CAP PO SCH (21:00)
[2017-10-01] MEDS ORDERED: PANTOprazole SOD 40 MG TAB PO ONE (21:24)
[2017-10-01 23:12] VITALS: BP 130/82; PULSE 89; TEMP 37; O2SAT 98
[2017-10-02] MEDS: AMPICILLIN/SULBACTAM SOD INJ 3,000 MG in SODIUM CHLORIDE 0.9% 100ML 100 ML IV SCH ×2 (01:38→07:30)
[2017-10-02] MEDS: KETOROLAC TROMETHAMINE 15 MG/ML VIAL IV. PRN (01:39)
[2017-10-02 07:16] VITALS: BP 110/70; PULSE 81; TEMP 36.6; O2SAT 96
[2017-10-02 07:42] LABS: HEMATOCRIT 39.5 % (42-52); HEMOGLOBIN 13.5 g/dL (14.0-18.0); MEAN CELL VOLUME 80.6 fL (80-100); MEAN CORPUSCULAR HEMOGLOBIN 27.6 pg (25-34); MEAN CORPUSCULAR HGB CONC 34.2 g/dl (32-36); MEAN PLATELET VOLUME 10.7 fL (7.4-10.4); PLATELET COUNT 107 K/uL (130-400); RED CELL DISTRIBUTION WIDTH CV 13.9 % (11.5-14.5); RED CELL DISTRIBUTION WIDTH SD 40.6 fL (36.4-46.3); WHITE BLOOD COUNT 15.67 K/uL (4.8-10.8)
[2017-10-02 08:09] LABS: CREATININE 0.92 mg/dl (0.60-1.40)
--- NOTE | 2017-10-02 12:17 | Progress Note ---
Subjective Date of Service: Oct 02, 2017. Subjective Pt evaluation today including: conversation w/ patient, physical exam, lab review, review of studies, review of inpatient medication list Saw/examined the patient in room 454 Symptoms have improved and nearly resolved Tolerating PO intake Problem List Medical Problems: (1) Peritonsillar abscess Status: Acute (2) Right ureteral calculus Status: Acute Review of Systems Constitutional: No fever, No chills ENT: No sore throat, No trouble swallowing Medications Current Inpatient Medications Medications (Trade) Dose Ordered Sig/Aren Route Start Time Stop Time Status Last Admin Dose Admin Ioversol (Optiray 320) 100 ml UD PRN IV 09/30/17 18:15 10/04/17 18:14 Acetaminophen (Tylenol Tab) 650 mg Q4H PRN PO 09/30/17 22:30 10/30/17 22:29 Ampicillin Sodium/ Sulbactam Sodium (Consult) 1 ea UD PRN N/A 09/30/17 23:00 10/30/17 22:59 Ketorolac Tromethamine (Toradol Inj) 15 mg Q6H PRN IV. 09/30/17 22:30 10/05/17 22:29 10/02/17 01:39 15 MG Ibuprofen (Advil Tab) 400 mg Q6H PRN PO 09/30/17 22:30 10/30/17 22:29 Prochlorperazine Edisylate 5 mg/ Syringe 5 ml @ 5 mls/min Q6H PRN IV 09/30/17 22:30 10/30/17 22:29 Tramadol HCl (Ultram Tab) not relieved by tylenol @ Q6H PRN PO 09/30/17 22:30 10/30/17 22:29 Miscellaneous Information (Order Awaiting Action) 1 ea QS N/A 10/01/17 00:00 10/31/17 00:00 Nortriptyline HCl (Pamelor Cap) 50 mg HS PO 10/01/17 21:00 10/31/17 20:59 10/01/17 21:42 50 MG Ampicillin Sodium/ Sulbactam Sodium 3000 mg/Sodium Chloride 108 ml @ 216 mls/hr Q6H IV 10/01/17 02:00 10/11/17 01:59 10/02/17 07:30 216 MLS/HR Pantoprazole Sodium (Protonix Tab) 40 mg HS PO 10/02/17 22:00 10/04/17 22:01 Objective Vital Signs Date Time Temp Pulse Resp B/P (MAP) Pulse Ox O2 Delivery O2 Flow Rate FiO2 10/02/17 08:00 Room Air 10/02/17 07:16 36.6 81 20 110/70 (83) 96 10/02/17 00:00 Room Air 10/01/17 23:12 37.0 89 18 130/82 (98) 98 Room Air 10/01/17 20:00 97 Room Air 10/01/17 16:00 Room Air 10/01/17 15:50 36.7 94 18 109/78 (88) 97 Room Air Physical Exam General Appearance: no apparent distress ENT: normal ENT inspection, hearing grossly normal, TMs normal, pharynx normal Laboratory Results Last 24 Hours Test 10/02/17 06:52 White Blood Count 15.67 K/uL Red Blood Count 4.90 M/uL Hemoglobin 13.5 g/dL Hematocrit 39.5 % Mean Corpuscular Volume 80.6 fL Mean Corpuscular Hemoglobin 27.6 pg Mean Corpuscular Hemoglobin Concent 34.2 g/dl RDW Standard Deviation 40.6 fL RDW Coefficient of Variation 13.9 % Platelet Count 107 K/uL Mean Platelet Volume 10.7 fL Creatinine 0.92 mg/dl Est Creatinine Clear Calc Drug Dose 114.6 ml/min Estimated GFR () 123.6 Estimated GFR (Non- 106.6 Assessment and Plan This is a 37 year old male with a past medical history of chronic migraines and chronic thrombocytopenia - presents with peritonsillar abscess Peritonsillar Abscess 10/02 - patient is doing well - plan is to d/c with Augmentin - ENT follow-up scheduled for October 0610/01 - CT of the soft tissue neck shows an 11mm peritonsillar abscess - spoke with ENT over the phone, this is unlikely to be drained - to see ENT as an outpatient in one week - in the meantime, will treat with antibiotics - Unasyn while inpatient and Augmentin on discharge - currently on clears and advance as tolerated Chronic Thrombocytopenia - platelets stable Chronic Migraines - continue home medications DVT ppx - ambulation FULL CODE
--- NOTE | 2017-10-02 12:20 | Discharge Instructions ---
Discharge Instructions Date of Service Oct 02, 2017. Admission Reason for Admission: Sepsis Discharge Discharge Diagnosis / Problem: Peritonsillar Abscess (infection) Discharge Goals Goal(s): Decrease discomfort, Improve function, Diagnostic testing, Therapeutic intervention Activity Recommendations Activity Limitations: resume your previous activity . Instructions / Follow-Up Instructions / Follow-Up Please follow-up with Dr. Fitch on October 07 at 1:05PM Please follow-up with ENT, Dr. Velasquez, on October 06 at 10:20AM as scheduled * You will be on Augmentin (antibiotics) for another 10 days Current Hospital Diet Patient's current hospital diet: Low Fiber Diet Discharge Diet Recommended Diet: Regular Diet (as) Pending Studies Studies pending at discharge: no Laboratory Results Hemoglobin A1c Test 09/30/17 18:10 Range/Units Estimated Average Glucose 97 mg/dl Hemoglobin A1c 5.0 4.5-5.6 % Medical Emergencies . Who to Call and When: Medical Emergencies: If at any time you feel your situation is an emergency, please call 911 immediately. . Non-Emergent Contact Non-Emergency issues call your: Primary Care Provider . . "Provider Documentation" section prepared by Bienvenido Tian. .
[2017-10-02] MEDS ORDERED: AMOX875T PO (12:21)
[2017-10-02] MEDS ORDERED: PANT40TA2 PO (12:21)
--- NOTE | 2017-10-02 12:23 | Discharge Summary ---
Discharge Summary Date of Service Oct 02, 2017. Discharge Summary Admission Date: Sep 30, 2017 at 21:47 Discharge Date: Oct 02, 2017 Discharge Disposition: Home Principal Diagnosis: Sepsis Peritonsillar Abscess Chronic Thrombocytopenia Chronic Migraines Medication Reconciliation New Medications: Amoxicillin & Pot Clavulanate (Augmentin 875-125 mg) 1 Tab Tab 1 TAB PO BID for 10 Days, #20 TAB Pantoprazole (Pantoprazole Sodium) 40 Mg Tab 40 MG PO HS for 10 Days, #10 TAB Continued Medications: Acetaminophen (Tylenol) 500 Mg Tab 500 MG PO UD PRN for Pain or Fever, TAB TAKE PER PACKAGE DIRECTIONS Eletriptan Hydrobromide (Eletriptan Hydrobromide) 40 Mg Tab 40 MG PO UD PRN for Migraine Admission Information HPI (per Admitting provider): DATE OF ADMISSION: 09/30/2017 PRIMARY CARE PHYSICIAN: Dr. Ficth. CHIEF COMPLAINT: Sore throat. HISTORY OF PRESENT ILLNESS: Medical history is significant for chronic migraine, urolithiasis, chronic thrombocytopenia. Since childhood, the patient has had recurrent sore throats (about three episodes a year) - most episodes resolving without antibiotic prescription. Last episode was last month. Yesterday sore throat noted more on on the right side with R otalgia, odynophagia, fever, chills. No chest pain, no shortness of breath. At the Emergency Room, patient received Unasyn for sepsis. MEDICAL HISTORY: As above. SURGERIES: Urologic procedures. HOME MEDICATIONS: Include Nortriptyline, Omeprazole, Relpax p.r.n. ALLERGIES: DUST MITE. FAMILY HISTORY: There is a family history of recurrent sore throat. PERSONAL AND SOCIAL HISTORY: Nonsmoker, no chronic intake of alcoholic beverages. [employer] employee. Originally from [place]. REVIEW OF SYSTEMS: As per HPI, all 10 systems reviewed, all other ROS negative. PHYSICAL EXAMINATION: VITAL SIGNS: Blood pressure was noted to be 113/79, pulse rate 154, later 101, RR 18, temperature 39.7, sats 96 on room air. GENERAL: Noted to be pleasant and comfortable, no respiratory distress. No stridor. SKIN: Normal color, warm. HEENT: [place] palpebral conjunctivae. No ptosis, dry mucosa. Enlarged tonsil on the right with right peritonsillar swelling, R tonsillar exudate noted. No trismus. NECK: Supple, some submandibular adenopathy noted. CHEST: Clear to auscultation, no tenderness. HEART: Tachycardic. No murmur. ABDOMEN: Soft, nontender. EXTREMITIES: No edema. No gross deformities, no tenderness. NEUROLOGIC: Coherent, no gross focality. LABORATORY DATA: Hemoglobin 15.7, hematocrit 45.8, white cell count 17.3, platelets 97 (immature granulocytes 0.07, monocytes 1.13, decreased platelet estimate). Sodium 136, potassium 3.9, chloride 103, BUN 60, creatine 1.2, glucose 114. Lactic acid was noted to be 2.1. CT neck shows subtle 11-mm right tonsillar hypodensity consistent with developing phlegmon/abscess. Chest x-ray, no active disease. EKG as per my interpretation, rate 145, sinus tachycardia, no ischemia. ASSESSMENT: 1. Severe sepsis SIRS plus lactic acid elevation secondary to peritonsillar abscess. 2. Chronic migraine, stable 3. Hyperglycemia, rule out DM. 4. Chronic thrombocytopenia with abnormal WBC differential count rule out blood dyscrasia. PLAN: GMF CS, IV Unasyn. IVF, follow lactic acid ENT consult, peritonsillar abscess, recurrent tonsillitis. Peripheral blood smear. Check hemoglobin A1c. DVT prophylaxis, SCDs RE thrombocytopenia. Full code. Hospital Course This is a 37 year old male with a past medical history of chronic migraines and chronic thrombocytopenia - presents with peritonsillar abscess Peritonsillar Abscess 10/02 - patient is doing well - plan is to d/c with Augmentin - ENT follow-up scheduled for October 0610/01 - CT of the soft tissue neck shows an 11mm peritonsillar abscess - spoke with ENT over the phone, this is unlikely to be drained - to see ENT as an outpatient in one week - in the meantime, will treat with antibiotics - Unasyn while inpatient and Augmentin on discharge - currently on clears and advance as tolerated Chronic Thrombocytopenia - platelets stable Chronic Migraines - continue home medications DVT ppx - ambulation FULL CODE Total time spent on discharge = 35 minutes This includes examination of the patient, discharge planning, medication reconciliation, and communication with other providers. Discharge Instructions Please follow-up with Dr. Fitch on October 07 at 1:05PM Please follow-up with ENT, Dr. Velasquez, on October 06 at 10:20AM as scheduled * You will be on Augmentin (antibiotics) for another 10 days
[2017-10-02 12:33] VITALS: BP 110/70; PULSE 81; TEMP 36.6; O2SAT 96
[2017-10-02] MEDS ORDERED: PANTOprazole SOD 40 MG TAB PO SCH (22:00)
== END 2017-10-02 13:23 | disposition home or self-care (01) | DRG 872 ==
LOC: C.EDB 17:50 → C.MS4W 21:47 → ENRESERV 22:08
PROVIDERS: ADMIT Family Medicine; ATTEND Family Medicine
DX: A41.9 Sepsis, unspecified organism (principal); J36 Peritonsillar abscess; D75.9 Disease of blood and blood-forming organs, unspecified; E11.65 Type 2 diabetes mellitus with hyperglycemia; G43.909 Migraine, unspecified, not intractable, without status migrainosus; Z91.048 Other nonmedicinal substance allergy status; Z83.3 Family history of diabetes mellitus; Z82.49 Family history of ischemic heart disease and other diseases of the circulatory system; Z83.6 Family history of other diseases of the respiratory system